=== PATIENT | female | born 1985 | race Caucasian/White ===

== ENCOUNTER 2021-01-18 13:36 | Emergency (ER) | payer OTHER ==
[~2021-01-18] VITALS: Ht 167.6 cm; Wt 111.0 kg
[2021-01-18 15:20] LABS: HEMATOCRIT 35.7 % (37.0-47.0); HEMOGLOBIN 11.1 g/dl (12.0-16.0); IMMATURE GRANULOCYTES 0.4 % (0.0-5.0); MEAN CELL VOLUME 81.1 fL CALC (80.0-100.0); MEAN CORPUSCULAR HGB 25.2 pG CALC (26.0-32.0); MEAN CORPUSCULAR HGB CONC 31.1 g/dL CAL (32.0-36.0); NEUT# 5.63 thou/uL (2.00-7.15); RED BLOOD COUNT 4.4 mill/uL (4.20-5.60)
[2021-01-18 15:23] LABS: URINE BILIRUBIN - DIPSTICK NEGATIVE (NEGATIVE); URINE BLOOD DIPSTICK LARGE (NEGATIVE); URINE COLOR YELLOW; URINE GLUCOSE - DIPSTICK NEGATIVE (NEGATIVE); URINE KETONE NEGATIVE (NEGATIVE); URINE LEUK ESTERASE NEGATIVE (NEGATIVE); URINE NITRITE - DIPSTICK NEGATIVE (Negative); URINE PROTEIN - DIPSTICK NEGATIVE (NEG-TRACE); URINE UROBILINOGEN - DIPSTICK 0.2 E.U./dL (0.2)
[2021-01-18 15:36] LABS: URINE SQUAMOUS EPITHELIAL CELL FEW EPI/hpf (0-FEW); URINE WBC 0-2 WBC/hpf (0-5)
[2021-01-18 15:37] LABS: ALBUMIN 3.8 g/dL (3.2-5.0); ALKALINE PHOSPHATASE 60 u/l (38-126); ANION GAP 10 (6-22 (CALC)); BILIRUBIN, TOTAL 0.8 mg/dL (0.0-1.4); BUN 8 mg/dL (7-17); BUN/CREATININE RATIO 12 (12-20 (CALC)); CARBON DIOXIDE 27 mmol/l (22-30); CHLORIDE 103 mmol/l (95-108); CREATININE 0.7 mg/dL (0.5-1.0); GFR > 60 ML/MIN (>=60 (CALC)); GFR FOR AFR.AMER. > 60 ML/MIN (>=60 (CALC)); POTASSIUM 4.2 mmol/l (3.5-5.1); SGOT/AST 17 u/l (14-36); SODIUM 137 mmol/l (137-146); TOTAL PROTEIN 6.9 g/dL (6.3-8.2)
[2021-01-18 16:58] VITALS: BP 138/89
== END 2021-01-18 16:58 | disposition home or self-care (01) ==
LOC: ED 13:36
PROVIDERS: Emergency Medicine
DX: N93.8 Other specified abnormal uterine and vaginal bleeding (principal); F17.210 Nicotine dependence, cigarettes, uncomplicated; Z20.2 Contact with and (suspected) exposure to infections with a predominantly sexual mode of transmission